=== PATIENT | male | born 1950 | race Caucasian/White ===

== ENCOUNTER 2022-03-07 01:03 | Inpatient (IN) | payer OTHER ==
[~2022-03-07] VITALS: Ht 167.6 cm; Wt 83.3 kg
[2022-03-07 01:57] LABS: INR 0.99 (0.9-1.15)
[2022-03-07 02:00] LABS: Albumin 3.6 g/dL (3.4-5.0); Anion Gap 8 (5-15); Blood Alcohol < 3.0 mg/dL (0-5); Blood Urea Nitrogen 52 mg/dL (7-18); Calcium 8.7 mg/dL (8.5-10.1); Carbon Dioxide 26 mmol/L (21-32); Chloride 108 mmol/L (98-107); Glucose 121 mg/dL (74-106); Potassium 3.9 mmol/L (3.5-5.1); Sodium 142 mmol/L (136-145)
[2022-03-07] MEDS ORDERED: SODIUM CHLORIDE 0.9% 1,000 ML IV ONE (02:00)
[2022-03-07 02:01] LABS: Alanine Aminotransferase 57 U/L (16-61); Aspartate Aminotransferase 76 U/L (15-37); BUN/Creatinine Ratio 22.3; GFR African American 36 mL/min; GFR Non-African American 29 mL/min
[2022-03-07 02:04] LABS: Alkaline Phosphatase 80 U/L (45-117); Total Protein 6.8 g/dL (6.4-8.2)
[2022-03-07 03:05] LABS: Basophils # (auto) 0 10 ^3/uL (0-0.2); Eosinophils # (auto) 0.1 10 ^3/uL (0-0.8); Eosinophils % (auto) 0.8 % (0.0-7.0); Monocytes # (auto) 0.6 10 ^3/uL (0-1.3); Neutrophils % (auto) 72.4 % (37.0-80.0)
[2022-03-07 03:20] LABS: Basophils % (auto) 0.6 % (0.0-2.0); Hematocrit 32.7 % (41.0-53.0); Hemoglobin 14.2 g/dL (13.5-17.5); Lymphocytes # (auto) 1.3 10 ^3/uL (0.4-5.4); Lymphocytes % (auto) 17.7 % (10.0-50.0); Mean Corpuscular Hemoglobin 49.9 pg (28.0-32.0); Mean Corpuscular Volume 114.8 fL (80.0-100.0); Monocytes % (auto) 8.5 % (0.0-12.0); Neutrophils # (auto) 5.4 10 ^3/uL (1.6-8.6); Nucleated Red Blood Cells % 0.2 %; Red Blood Cells 2.85 10^6/uL (4.5-5.90); Red Cell Distribution Width 15.1 % (11.8-14.3); White Blood Cell 7.4 10^3/uL (4.4-10.8)
[2022-03-07 03:24] LABS: Mean Corpuscular Hgb Conc. 43.5 g/dL (32.0-36.0)
[2022-03-07] MEDS ORDERED: DOCUSATE SOD 100 MG CAP PO PRN (07:15)
[2022-03-07] MEDS ORDERED: ACETAMINOPHEN 325 MG TAB PO PRN (07:15)
[2022-03-07] MEDS ORDERED: ONDANSETRON HCL 4 MG/2 ML VIAL IV PRN (07:15)
[2022-03-07] MEDS ORDERED: DEXTROSE (50%) 50ML SYRG IV PRN (07:30)
[2022-03-07] MEDS ORDERED: MORPHINE SULFATE INJ 2 MG/ml SYRG IV PRN (07:45)
[2022-03-07] MEDS ORDERED: NITROGLYCERIN 0.4 MG SL TAB SL PRN (07:45)
[2022-03-07 08:16] LABS: Albumin 3.2 g/dL (3.4-5.0); BUN/Creatinine Ratio 29.4; Calcium 8.2 mg/dL (8.5-10.1)
[2022-03-07 08:19] LABS: Bilirubin, Total 0.9 mg/dL (0.2-1.0); Total Protein 6.2 g/dL (6.4-8.2)
[2022-03-07 09:40] LABS: Hematocrit 33.7 % (41.0-53.0); Hemoglobin 13.3 g/dL (13.5-17.5); Mean Corpuscular Hemoglobin 43.7 pg (28.0-32.0); Mean Corpuscular Volume 110.9 fL (80.0-100.0); Red Blood Cells 3.04 10^6/uL (4.5-5.90); Red Cell Distribution Width 14.8 % (11.8-14.3); White Blood Cell 5.5 10^3/uL (4.4-10.8)
[2022-03-07 09:41] LABS: Mean Corpuscular Hgb Conc. 39.4 g/dL (32.0-36.0)
[2022-03-07 09:42] LABS: Basophils % (manual) 0 (0.0-2.0); Blast Cells 0; Myelocytes % 0; Promyelocytes % 0; Reactive Lymphocytes 0
[2022-03-07 09:50] LABS: Band Neutrophils % (manual) 4; Eosinophils % (manual) 2 (0-7); Lymphocytes % (manual) 19 (10.0-50.0); Metamyelocytes % 2; Monocytes % (manual) 3 (0-12)
[2022-03-07] MEDS: FAMOTIDINE (10MG/ML) 2ML VL IV SCH ×2 (10:27→22:13)
[2022-03-07] MEDS: ASPirin 81 mg TAB PO SCH (10:28)
[2022-03-07] MEDS: ACCU-CHEK COMFORT CURVE STRIP VI SCH ×3 (11:30→22:14)
[2022-03-07] MEDS: InsuLIN REG 1unit/0.01ml Soln (100units/ml) SC SCH ×3 (11:30→22:14)
[2022-03-07] MEDS: SODIUM CHLORIDE 0.9% 1,000 ML IV SCH (15:00)
[2022-03-07] MEDS ORDERED: LORazepam 2MG/ML-1ML VIAL IV PRN (16:15)
[2022-03-07 16:31] LABS: Cholesterol 135 mg/dL (< 200); HDL Cholesterol 53 mg/dL (40-59); LDL Cholesterol 67 mg/dL (< 100); Triglycerides 123 mg/dL (< 150)
[2022-03-07 21:16] VITALS: BP 122/60
[2022-03-07] MEDS ORDERED: LISI-716 PO (22:01)
[2022-03-07] MEDS ORDERED: BUPR150T18 PO (22:01)
[2022-03-07] MEDS ORDERED: SOLI10TA7 PO (22:01)
[2022-03-07] MEDS ORDERED: TAMS0.4C36 PO (22:01)
[2022-03-07] MEDS ORDERED: VENL1TAB96 PO (22:01)
[2022-03-07] MEDS ORDERED: FIN5T PO (22:01)
[2022-03-07] MEDS: ATORVASTATIN 20 MG TAB PO SCH (22:13)
[2022-03-07 22:58] LABS: Urine Bacteria FEW /hpf (None Seen); Urine Blood Negative /uL (Negative); Urine Specific Gravity 1.021 (1.001-1.035); Urine WBC 8 /hpf (0 - 3)
[2022-03-07 22:58] LABS: Urine Bacteria NONE SEEN /hpf (None Seen); Urine Blood Negative /uL (Negative); Urine WBC 6 /hpf (0 - 3)
[2022-03-07 23:20] LABS: Amphetamine Screen, Urine POSITIVE (NEGATIVE); Barbiturate Scree,Urine NEGATIVE (NEGATIVE); Protein, Urine 47.4 mg/dL (0.0-11.9); Sodium Urine 24 mmol/L (40-220)
[2022-03-07 23:27] LABS: Benzodiazephine Screen, Urine NEGATIVE (NEGATIVE); Cannabinoid Screen, Urine POSITIVE (NEGATIVE); Cocaine Screen, Urine NEGATIVE (NEGATIVE); Creatinine, Urine 141 mg/dL (30.0-125.0); Opiate Scree,Urine NEGATIVE (NEGATIVE); Phencyclidine Screen, Urine NEGATIVE (NEGATIVE)
[2022-03-08] MEDS: SODIUM CHLORIDE 0.9% 1,000 ML IV SCH ×2 (04:20→17:40)
[2022-03-08 04:51] VITALS: BP 121/53
[2022-03-08] MEDS: ACCU-CHEK COMFORT CURVE STRIP VI SCH ×3 (06:16→21:44)
[2022-03-08] MEDS: InsuLIN REG 1unit/0.01ml Soln (100units/ml) SC SCH ×4 (06:17→21:44)
[2022-03-08 06:23] LABS: Albumin 3.1 g/dL (3.4-5.0); Calcium 8.6 mg/dL (8.5-10.1); Potassium 4.1 mmol/L (3.5-5.1)
[2022-03-08 06:25] LABS: BUN/Creatinine Ratio 39.2
[2022-03-08 06:27] LABS: Bilirubin, Total 0.6 mg/dL (0.2-1.0); Total Protein 5.9 g/dL (6.4-8.2)
[2022-03-08 06:34] LABS: Basophils # (auto) 0 10 ^3/uL (0-0.2); Basophils % (auto) 0.5 % (0.0-2.0); Eosinophils # (auto) 0.1 10 ^3/uL (0-0.8); Lymphocytes # (auto) 0.9 10 ^3/uL (0.4-5.4); Lymphocytes % (auto) 19.6 % (10.0-50.0); Monocytes # (auto) 0.4 10 ^3/uL (0-1.3)
[2022-03-08 06:36] LABS: Eosinophils % (auto) 2.9 % (0.0-7.0); Hematocrit 30.7 % (41.0-53.0); Hemoglobin 13.5 g/dL (13.5-17.5); Mean Corpuscular Hemoglobin 49.9 pg (28.0-32.0); Mean Corpuscular Volume 113.8 fL (80.0-100.0); Monocytes % (auto) 8.2 % (0.0-12.0); Neutrophils # (auto) 3.1 10 ^3/uL (1.6-8.6); Neutrophils % (auto) 68.8 % (37.0-80.0); Red Cell Distribution Width 14.6 % (11.8-14.3); White Blood Cell 4.5 10^3/uL (4.4-10.8)
[2022-03-08 06:39] LABS: Mean Corpuscular Hgb Conc. 43.8 g/dL (32.0-36.0)
[2022-03-08 09:03] VITALS: BP 139/71
[2022-03-08] MEDS: FOLIC ACID 1 MG in D5W 5% 50 ML INJ SCH (10:00)
[2022-03-08] MEDS: FAMOTIDINE (10MG/ML) 2ML VL IV SCH ×2 (10:09→21:36)
[2022-03-08] MEDS: THIAMINE 100mg/ml INJ (200mg/2ml VIAL) IV SCH (10:09)
[2022-03-08] MEDS: ASPirin 81 mg TAB PO SCH (10:09)
[2022-03-08 13:00] VITALS: BP 138/70
[2022-03-08 13:29] VITALS: BP 138/70
[2022-03-08 17:00] VITALS: BP 152/76
[2022-03-08] MEDS: ATORVASTATIN 20 MG TAB PO SCH (21:33)
[2022-03-08] MEDS: HYDROcodone-ACET 5/325MG TAB PO PRN (21:40)
[2022-03-08 22:00] VITALS: BP 146/81
[2022-03-08] MEDS ORDERED: LORazepam 2MG/ML-1ML VIAL IV PRN (22:30)
[2022-03-09 00:34] VITALS: BP 146/81
[2022-03-09] MEDS: HYDROcodone-ACET 5/325MG TAB PO PRN (04:01)
[2022-03-09 05:00] VITALS: BP 143/63
[2022-03-09] MEDS: ACCU-CHEK COMFORT CURVE STRIP VI SCH ×2 (06:13→11:30)
[2022-03-09] MEDS: InsuLIN REG 1unit/0.01ml Soln (100units/ml) SC SCH ×2 (06:14→11:30)
[2022-03-09] MEDS: SODIUM CHLORIDE 0.9% 1,000 ML IV SCH (06:15)
[2022-03-09 06:48] LABS: Calcium 8.7 mg/dL (8.5-10.1)
[2022-03-09 06:52] LABS: BUN/Creatinine Ratio 31.6
[2022-03-09 09:23] VITALS: BP 148/71
[2022-03-09] MEDS: THIAMINE 100mg/ml INJ (200mg/2ml VIAL) IV SCH (09:42)
[2022-03-09] MEDS: FAMOTIDINE (10MG/ML) 2ML VL IV SCH (09:42)
[2022-03-09] MEDS: ASPirin 81 mg TAB PO SCH (09:42)
[2022-03-09] MEDS: FOLIC ACID 1 MG in D5W 5% 50 ML INJ SCH (09:46)
[2022-03-09] MEDS ORDERED: ASPI-498 PO (10:01)
[2022-03-09] MEDS ORDERED: THIA100T5 PO (10:01)
[2022-03-09] MEDS ORDERED: FOLI1TAB6 PO (10:01)
[2022-03-09] MEDS ORDERED: ATO40T PO (10:01)
[2022-03-09 12:55] VITALS: BP 161/67
== END 2022-03-09 16:30 | disposition home or self-care (01) | DRG 70 ==
LOC: EDBD 01:03 → ER 01:03 → TELE 07:42 → TELE-WESTW 20:49
PROVIDERS: ADMIT Nurse Practitioner Family; ATTEND Family Medicine
DX: G93.41 Metabolic encephalopathy (principal); I21.A1 Myocardial infarction type 2; N17.9 Acute kidney failure, unspecified; E11.22 Type 2 diabetes mellitus with diabetic chronic kidney disease; E66.9 Obesity, unspecified; F15.10 Other stimulant abuse, uncomplicated; F31.9 Bipolar disorder, unspecified; I12.9 Hypertensive chronic kidney disease with stage 1 through stage 4 chronic kidney disease, or unspecified chronic kidney disease; I95.9 Hypotension, unspecified; Z20.822 Contact with and (suspected) exposure to COVID-19; W18.39XA Other fall on same level, initial encounter; N18.9 Chronic kidney disease, unspecified; R29.6 Repeated falls; S02.2XXA Fracture of nasal bones, initial encounter for closed fracture; Z79.899 Other long term (current) drug therapy; Z79.82 Long term (current) use of aspirin; Z80.3 Family history of malignant neoplasm of breast; Z86.73 Personal history of transient ischemic attack (TIA), and cerebral infarction without residual deficits; Y93.89 Activity, other specified; Y92.098 Other place in other non-institutional residence as the place of occurrence of the external cause; Y99.8 Other external cause status; Z68.29 Body mass index [BMI] 29.0-29.9, adult
CPT/HCPCS: 36415; 70450; 70551; 71045; 72125; 76775; 80048; 80053; 80061; 80307; 80320; 81001; 82570; 82607; 82746; 82962; 83036; 84156; 84300; 84443; 84484; 85007; 85025; 85027; 85610; 93005; 93306; 93886; 96360; G0378; J1815; J3490; J7060

== ENCOUNTER 2024-07-22 17:36 | Emergency (ER) | payer OTHER ==
[~2024-07-22] VITALS: Ht 167.6 cm; Wt 86.3 kg
[~2024-07-22 17:36] MED LIST: ASPI-498 PO; ATOR-507 PO; BUPR150T18 PO; FIN5T PO; FOLI-119 PO; LISI10TA34 PO; SOLI10TA39 PO; TAMS0.4C39 PO; THIA100T5 PO; VENL25TA40 PO
--- NOTE | 2024-07-22 18:10 | ED.PDOC ---
History of Present Illness HPI Comments 73-year-old male presents with a chief complaint of right lower leg swelling and pain x 2 days. Patient states that he initially was seen by his PCP at [place] and was referred to the ER for a DVT study. Patient is not able to ambulate on the leg without pain. Patient denies any history of DVTs in the past. Patient denies any chest pain, SOB, headache, or abdominal pain. No other symptoms or modifying factors present at this time. Patient does have a history of kidney disease. Chief Complaint: Lower Extremity Time Seen by MD: 18:05 Reviewed Notes: Nurses Notes, Medications, Allergies Allergies: Coded Allergies: NO KNOWN ALLERGIES (Unverified , 03/07/22) Home Meds Active Scripts Atorvastatin Calcium (Lipitor) 40 Mg Tab, 1 TAB PO QPM, #90 TAB 3 Refills Prov:CAMI MÉNDEZ MD 03/09/22 Aspirin (ASPIRIN 81) 81 Mg Tab, 81 MG PO DAILY, #90 TAB Prov:CAMI MÉNDEZ MD 03/09/22 Folic Acid (Folic Acid) 1 Mg Tab, 1 MG PO DAILY, #30 TAB Prov:CAMI MÉNDEZ MD 03/09/22 Thiamine Hcl (Thiamine Hcl) 100 Mg Tab, 1 TAB PO DAILY, #30 TAB 3 Refills Prov:CAMI MÉNDEZ MD 03/09/22 Reported Medications Lisinopril (Lisinopril) 10 Mg Tab, 1 TAB PO DAILY 03/07/22 Solifenacin Succinate (Solifenacin Succinate) 10 Mg Tab, 1 TAB PO DAILY 03/07/22 Finasteride (Finasteride) 5 Mg Tab, 1 TAB PO DAILY 03/07/22 Tamsulosin Hcl (Tamsulosin Hcl) 0.4 Mg Cap, 1 CAP PO DAILY 03/07/22 Bupropion Hcl (Bupropion Hcl Xl) 150 Mg Tab, 1 TAB PO QAM 03/07/22 Venlafaxine Hydrochloride (Effexor) 25 Mg Tab, 1 TAB PO BID 03/07/22 Information Source: Patient Mode of Arrival: Wheelchair Severity: Moderate Timing: Days Duration: Since onset Prehospital treatment: None Past Medical History PAST MEDICAL HISTORY: CVA, DM, ESRD, HTN Surgical History: Unobtainable, Pt Confused Family History Family History: Unknown Social History Smoker: Non-Smoker Alcohol: Denies ETOH Use Drugs: Denies Drug Use Lives In: Home Constitutional: denies: chills, diaphoresis, fatigue, fever, malaise, sweats, weakness, others EENTM: denies: blurred vision, double vision, ear bleeding, ear discharge, ear drainage, ear pain, ear ringing, eye pain, eye redness, hearing loss, mouth pain, mouth swelling, nasal discharge, nose bleeding, nose congestion, nose pain, photophobia, tearing, throat pain, throat swelling, voice changes, others Respiratory: denies: cough, hemoptysis, orthopnea, SOB at rest, shortness of breath, SOB with excertion, stridor, wheezing, others Cardiovascular: reports: edema (Right lower extremity); denies: chest pain, dizzy spells, diaphoresis, Dyspnea on exertion, irregular heart beat, left arm pain, lightheadedness, palpitations, PND, syncope, others Gastrointestinal: denies: abdomen distended, abdominal pain, blood streaked bowels, constipated, diarrhea, dysphagia, difficulty swallowing, hematemesis, melena, nausea, poor appetite, poor fluid intake, rectal bleeding, rectal pain, vomiting, others Genitourinary: denies: burning, dysuria, flank pain, frequency, hematuria, incontinence, penile discharge, penile sore, pain, testicle pain, testicle swelling, urgency, others Neurological: denies: dizziness, fainting, headache, left sided numbness, left sided weakness, numbness, paresthesia, pre-existing deficit, right sided numbness, right sided weakness, seizure, speech problems, tingling, tremors, weakness, others Musculoskeletal: reports: muscle pain (Right lower extremity); denies: back pain, gout, joint pain, joint swelling, muscle stiffness, neck pain, others Integumetry: denies: bruises, change in color, change in hair/nails, dryness, laceration, lesions, lumps, rash, wounds, others Allergic/Immunocompromised: denies: Difficulty Healing, Frequent Infections, Hives, Itching, others Hematologic/Lymphatic: denies: anemia, blood clots, easy bleeding, easy bruising, swollen glands, others Endocrine: denies: excessive hunger, excessive sweating, excessive thirst, excessive urination, flushing, intolerance to cold, intolerance to heat, unexplained weight gain, unexplained weight loss, others Psychiatric: denies: anxiety, bipolar disorder, depression, hopeless, panic disorder, schizophrenia, sleepless, suicidal, others All Other Systems: Reviewed and Negative Physical Exam General Appearance: Moderate Distress (Patient is a [id number] distress due to right lower extremity pain), Normal HEENT: Normal ENT Inspection, Pharynx Normal, TMs Normal Neck: Full Range of Motion, Non-Tender, Normal, Normal Inspection Respiratory: Chest Non-Tender, Lungs Clear, No Accessory Muscle Use, No Respiratory Distress, Normal Breath Sounds Cardiovascular: No Edema, No JVD, No Murmur, No Gallop, Normal Peripheral Pulses, Regular Rate/Rhythm Breast Exam: Deferred Gastrointestinal: No Organomegaly, Non Tender, No Pulsatile Mass, Normal Bowel Sounds, Soft Genitalia: Deferred Pelvic: Deferred Rectal: Deferred Extremities: Other (Right lower extremities diffusely tender to palpation from the popliteal region down into the dorsal aspect of the foot. Mild edema noted without erythema. Mass noted in the popliteal region indicative of a Billingsley cyst. Distal neurovascularly intact.) Musculoskeletal : Apperance: Normal Neurologic: Alert, No Motor Deficits, Normal Affect, Normal Mood, No Sensory Deficits Cerebellar Function: Normal Reflexes: Normal Skin: Dry, Normal Color, Warm Lymphatic: No Adenopathy Was a procedure done? Was a procedure done?: No Differential Dx Considerations may include: DVT, Billingsley cyst, sepsis X-Ray, Labs, Meds, VS Vital Signs Date Time Temp Pulse Resp B/P (MAP) Pulse Ox O2 Delivery O2 Flow Rate FiO2 07/22/24 18:06 99.0 91 22 139/75 (96) 96 Lab Test 07/22/24 18:34 Range/Units White Blood Count 8.7 4.4-10.8 10^3/uL Red Blood Count 4.22 L 4.5-5.90 10^6/uL Hemoglobin 14.9 13.5-17.5 g/dL Hematocrit 41.2 41.0-53.0 % Mean Corpuscular Volume 97.5 80.0-100.0 fL Mean Corpuscular Hemoglobin 35.4 H 28.0-32.0 pg Mean Corpuscular Hemoglobin Concent 36.3 H 32.0-36.0 g/dL Red Cell Distribution Width 14.3 11.8-14.3 % Platelet Count 142 140-450 10^3/uL Mean Platelet Volume 9.4 6.9-10.8 fL Neutrophils (%) (Auto) 82.9 H 37.0-80.0 % Lymphocytes (%) (Auto) 8.0 L 10.0-50.0 % Monocytes (%) (Auto) 7.9 0.0-12.0 % Eosinophils (%) (Auto) 0.4 0.0-7.0 % Basophils (%) (Auto) 0.8 0.0-2.0 % Neutrophils # (Auto) 7.2 1.6-8.6 10 ^3/uL Lymphocytes # (Auto) 0.7 0.4-5.4 10 ^3/uL Monocytes # (Auto) 0.7 0-1.3 10 ^3/uL Eosinophils # (Auto) 0 0-0.8 10 ^3/uL Basophils # (Auto) 0.1 0-0.2 10 ^3/uL Nucleated Red Blood Cells 0.1 % Sodium Level 140 136-145 mmol/L Potassium Level 4.3 3.5-5.1 mmol/L Chloride Level 103 98-107 mmol/L Carbon Dioxide Level 26 20-31 mmol/L Anion Gap 11 5-15 Blood Urea Nitrogen 42 H 9-23 mg/dL Creatinine 1.31 H 0.700-1.30 mg/dL Glomerular Filtration Rate Calc 57 >90 mL/min BUN/Creatinine Ratio 32.1 H 10.0-20.0 Serum Glucose 176 H 74-106 mg/dL Calcium Level 10.3 8.7-10.4 mg/dL B-Type Natriuretic Peptide 111.74 0-100 pg/mL X-Ray, Labs, Meds, VS Comment All studies performed the ED were evaluated by me personally. Serum laboratories were unremarkable other than the confirmation of kidney disease. Imaging studies revealed a Billingsley cyst behind the right knee. Patient has been advised to utilize pain medication as needed and follow up with his primary care provider. Time of 1ST Reevaluation: 20:11 Reevaluation 1ST: Improved Consultation: PCP Patient Education/Counseling: Diagnosis, Treatment, Prognosis Family Education/Counseling: Diagnosis, Treatment, Prognosis Departure 1 Departure Time of Disposition: 20:11 Impression: Primary Impression: Billingsley's cyst of knee Disposition: 01 HOME / SELF CARE / HOMELESS Condition: Stable Additional Instructions: Advised patient utilize pain medication as needed and follow up with primary care provider for continued evaluation as needed. e-Prescriptions Hydrocodone-Acetaminophen (Hydrocodone Bitartrate/AC 5-325 mg) 1 Tab Tab 1 TAB PO Q6HP PRN, #15 TAB Prov: GLORIA WAY PAC 07/22/24 Discharged With: Self, Friend Critical Care Note Critical Care Time?: No Stability Stability form required: No I personally scribed for GLORIA WAY PAC ([email or web address]) on 07/22/24 at 18:10. Electronically submitted by Johan Rojas ([email or web address]). GLORIA WAY PAC Jul 22, 2024 18:10
[2024-07-22 19:08] LABS: Chloride 103 mmol/L (98-107); Potassium 4.3 mmol/L (3.5-5.1); Sodium 140 mmol/L (136-145)
[2024-07-22 19:09] LABS: Anion Gap 11 (5-15); Carbon Dioxide 26 mmol/L (20-31)
[2024-07-22 19:10] LABS: Calcium 10.3 mg/dL (8.7-10.4)
[2024-07-22 19:15] LABS: BUN/Creatinine Ratio 32.1 (10.0-20.0); Blood Urea Nitrogen 42 mg/dL (9-23); Glucose 176 mg/dL (74-106)
--- NOTE | 2024-07-22 19:23 | DVH ---
RIGHT lower extremity venous duplex Clinical History: DVT rule out Comparison: None Technique: Duplex Doppler evaluation of the deep venous systems of RIGHT lower extremities from the common femor al veins to the popliteal veins including color Doppler and spectral/pulsed waveform analysis was per formed. Findings: RIGHT SIDE: The common femoral vein demonstrates appropriate compressibility and waveform variability. There is compressibility/patency of the great saphenous vein at the proximal thigh. The femoral vein demonstrates appropriate compressibility and waveform variability. The deep femoral vein demonstrates appropriate compressibility and waveform variability. The popliteal vein demonstrates appropriate compressibility and waveform variability. There is normal compressibility at the tibioperoneal trunk. Cystic area in the right popliteal fossa measuring 5.73 cm suggestive of a Billingsley's cyst. Impression: 1. No right femoropopliteal venous thrombosis. 2. 5.73 cm cystic area in the right popliteal fossa consistent with a Billingsley's cyst.
[2024-07-22 19:30] LABS: Basophils # (auto) 0.1 10 ^3/uL (0-0.2); Basophils % (auto) 0.8 % (0.0-2.0); Eosinophils # (auto) 0 10 ^3/uL (0-0.8); Eosinophils % (auto) 0.4 % (0.0-7.0); Hematocrit 41.2 % (41.0-53.0); Hemoglobin 14.9 g/dL (13.5-17.5); Lymphocytes # (auto) 0.7 10 ^3/uL (0.4-5.4); Mean Corpuscular Hemoglobin 35.4 pg (28.0-32.0); Mean Corpuscular Hgb Conc. 36.3 g/dL (32.0-36.0); Mean Corpuscular Volume 97.5 fL (80.0-100.0); Monocytes # (auto) 0.7 10 ^3/uL (0-1.3); Monocytes % (auto) 7.9 % (0.0-12.0); Neutrophils # (auto) 7.2 10 ^3/uL (1.6-8.6); Neutrophils % (auto) 82.9 % (37.0-80.0); Nucleated Red Blood Cells % 0.1 %; Platelet Count (auto) 142 10^3/uL (140-450); Red Blood Cells 4.22 10^6/uL (4.5-5.90); Red Cell Distribution Width 14.3 % (11.8-14.3); White Blood Cell 8.7 10^3/uL (4.4-10.8)
[2024-07-22] MEDS ORDERED: HYDR-4902 PO (20:12)
[2024-07-22] MEDS: HYDROcodone-ACET 10/325MG TAB PO ONE (21:05)
[2024-07-22 21:14] VITALS: BP 134/84; PULSE 84; RESP 16; TEMP 98.9; O2SAT 95
== END 2024-07-22 21:24 | disposition home or self-care (01) ==
LOC: ER 17:36
DX: M71.21 Synovial cyst of popliteal space [Baker], right knee (principal); I12.0 Hypertensive chronic kidney disease with stage 5 chronic kidney disease or end stage renal disease; N18.6 End stage renal disease; E11.22 Type 2 diabetes mellitus with diabetic chronic kidney disease; Z86.73 Personal history of transient ischemic attack (TIA), and cerebral infarction without residual deficits
CPT/HCPCS: 36415; 80048; 83880; 85025; 93971